=== PATIENT | male | born 1955 | race Caucasian/White ===

== ENCOUNTER → 2018-08-29 | Outpatient (CLI) | payer OTHER ==
[~2018-08-29] MED LIST: GLIP10TA13 PO; LISI5TAB7 PO; PRAV40TA2 PO; SITA1TBM7 PO
== END | disposition home or self-care (01) ==
LOC: CFH 11:39
PROVIDERS: ATTEND Nurse Practitioner Family
DX: K46.9 Unspecified abdominal hernia without obstruction or gangrene (principal)
CPT/HCPCS: 76705

== ENCOUNTER 2018-10-28 13:47 | Emergency (ER) | payer OTHER ==
[~2018-10-28] VITALS: Ht 180.3 cm; Wt 114.4 kg
[2018-10-28 14:59] LABS: BASOPHILS # (AUTO) 0.02 x10^3/uL (0-0.1); BASOPHILS % (AUTO) 0 % (0-1); EOSINOPHILS # (AUTO) 0.07 x10^3/uL (0-0.4); EOSINOPHILS % (AUTO) 1 % (1-7); LYMPHOCYTES # (AUTO) 1.72 x10^3/uL (1-3.4); LYMPHOCYTES % (AUTO) 18 % (22-44); MD NO; MEAN CORPUSCULAR HEMOGLOBIN 29.8 pg (27.5-34.5); MEAN CORPUSCULAR VOLUME 87.6 fL (81-97); MEAN PLATELET VOLUME 8.1 fL (7.4-10.4); MONOCYTES # (AUTO) 0.83 x10^3/uL (0.2-0.8); MONOCYTES % (AUTO) 9 % (2-9); NEUTROPHILS # (AUTO) 6.89 x10^3/uL (1.8-6.8); NEUTROPHILS % (AUTO) 72 % (42-75); PLATELET COUNT 277 x10^3/uL (130-400); RED BLOOD COUNT 5.21 x10^6/uL (4.38-5.82); RED CELL DISTRIBUTION WIDTH 13.6 % (9.4-14.8)
[2018-10-28 15:06] LABS: CULTURE INDICATED? YES; MICROSCOPIC INDICATED
[2018-10-28 15:09] LABS: ANION GAP 5 mmol/L (5-15); CALCIUM 9.4 mg/dL (8.5-10.1); CHLORIDE 101 mmol/L (98-107); CREATININE 1.63 mg/dL (0.7-1.3)
--- NOTE | 2018-10-28 15:09 | NUR ---
Note doug in EDM - 10/28/18 at 1522 by DEMOND PER MD, PT TO RECIEVE NS BOLUS WHILE WAITING FOR LABS FOR HYPERGLYCEMIA. PT AGREES TO POC, UA SENT. LABS PENDING.
--- NOTE | 2018-10-28 15:22 | NUR ---
PER MD, PT TO RECIEVE NS BOLUS WHILE WAITING FOR LABS FOR HYPERGLYCEMIA. PT AGREES TO POC, UA SENT. LABS PENDING
--- NOTE | 2018-10-28 15:22 | NUR ---
Note doug in EDM - 10/28/18 at 1523 by DEMOND PT REPORTS PERSISTENT NAUSEA, AWARE, PT MEDICATED PER EMAR. GIVEN BLANKET WARMER FOR COMFORT, ROSINA AT BEDSIDE. PT AGREES TO POC (ADMIT
[2018-10-28] MEDS ORDERED: CEFTRIAXONE PMX 1GM/50ML 50 ML IV ONE (15:30)
[2018-10-28] MEDS ORDERED: SODIUM CHLORIDE 0.9% 1,000ML IVBOLUS ONE (15:30)
[2018-10-28] MEDS ORDERED: CEFTRIAXONE PMX 1GM/50ML 50 ML ONE (15:33)
--- NOTE | 2018-10-28 15:39 | NUR ---
SECOND LITER NS AND ABX INFUSING. PT DENIES ANY NEEDS AT THIS TIME
[2018-10-28 16:01] VITALS: BP 117/68
[2018-10-28 16:06] LABS: HEMOGLOBIN A1C 9.7 % (4.2-6.3)
[2018-10-28 16:15] LABS: ACETONE, SERUM Negative (Negative)
--- NOTE | 2018-10-28 16:29 | NUR ---
SECOND LITER HALF DONE, PT REQ RESTROOM, PT AMBULATED WITHOUT ASSISTANCE, WILL RECHECK FSBS AFTER SECOND LITER COMPLETE
--- NOTE | 2018-10-28 16:58 | NUR ---
FSBS RECHECK PRIOR TO DC, FLUIDS AND ABX COMPLETE. PT AMBUALTED TO DC DESK WITHOUT ASSISTANCE, DENIES ANY FURTHER NEEDS/CONCERNS.
== END 2018-10-28 17:01 | disposition home or self-care (01) ==
LOC: ED 15:00
DX: E11.65 Type 2 diabetes mellitus with hyperglycemia (principal); N39.0 Urinary tract infection, site not specified; I10 Essential (primary) hypertension
CPT/HCPCS: 36415; 80048; 81001; 82010; 82040; 82800; 82962; 83036; 85025; 87086; 96365; 99283; J0696; J7030

== ENCOUNTER → 2019-11-10 | Outpatient (CLI) | payer OTHER | END | disposition home or self-care (01) | LOC: CVU 14:18 | PROVIDERS: ATTEND Internal Medicine Cardiovascular Disease | DX: I34.8 Other nonrheumatic mitral valve disorders (principal); E11.9 Type 2 diabetes mellitus without complications | CPT/HCPCS: 93306 ==

== ENCOUNTER 2020-05-28 16:54 | Inpatient (IN) | payer OTHER ==
[~2020-05-28] VITALS: Ht 182.9 cm; Wt 101.6 kg
[~2020-05-28 16:54] MED LIST changes: -[UNRECOGNIZED DRUG - REMARK] SQ
--- NOTE | 2020-05-28 17:36 | NUR ---
PT FROM LOBBY TO ROOM. NADN, AMBULATES WITH A STEADY GAIT
[2020-05-28] MEDS ORDERED: ONDANSETRON 2MG/ML, 2ML IVPush ONE (18:00)
[2020-05-28] MEDS ORDERED: SODIUM CHLORIDE 0.9% 1,000ML IVBOLUS ONE (18:00)
[2020-05-28] MEDS ORDERED: CEFTRIAXONE PMX 1GM/50ML 50 ML IVPB ONE (18:00)
[2020-05-28 18:22] LABS: MEAN CORPUSCULAR HEMOGLOBIN 28.2 pg (27.5-34.5); MEAN CORPUSCULAR HGB CONC 33.1 g/dL (33.2-36.2); MEAN CORPUSCULAR VOLUME 85.2 fL (81-97); MEAN PLATELET VOLUME 7.8 fL (7.4-10.4); PLATELET COUNT 440 x10^3/uL (130-400); RED BLOOD COUNT 4.05 x10^6/uL (4.38-5.82); RED CELL DISTRIBUTION WIDTH 13.9 % (9.4-14.8)
[2020-05-28 18:29] LABS: ALBUMIN 2.5 g/dL (3.4-5.0); ANION GAP 5 mmol/L (5-15); CALCIUM 8.8 mg/dL (8.5-10.1); CHLORIDE 99 mmol/L (98-107); CREATININE 1.49 mg/dL (0.7-1.3)
[2020-05-28] MEDS ORDERED: CEFTRIAXONE PMX 1GM/50ML 50 ML ONE (18:40)
[2020-05-28] MEDS ORDERED: ONDANSETRON 2MG/ML, 2ML ONE (18:41)
[2020-05-28] MEDS ORDERED: MORPHINE SULFATE 4 MG/ML, 1ML ONE ×2 (18:41→20:03)
[2020-05-28] MEDS: MORPHINE SULFATE 4 MG/ML, 1ML IVPush PRN ×2 (18:42→20:06)
[2020-05-28 18:51] LABS: BASOPHILS # (AUTO) 0.04 x10^3/uL (0-0.1); BASOPHILS % (AUTO) 0 % (0-1); EOSINOPHILS # (AUTO) 0.15 x10^3/uL (0-0.4); EOSINOPHILS % (AUTO) 1 % (1-7); LYMPHOCYTES # (AUTO) 1.13 x10^3/uL (1-3.4); LYMPHOCYTES % (AUTO) 8 % (22-44); MD SCAN; MONOCYTES # (AUTO) 1.06 x10^3/uL (0.2-0.8); MONOCYTES % (AUTO) 8 % (2-9); NEUTROPHILS # (AUTO) 11.23 x10^3/uL (1.8-6.8); NEUTROPHILS % (AUTO) 83 % (42-75)
--- NOTE | 2020-05-28 18:56 | NUR ---
PT MEDICATED ORDERED. PT C/O RIGHT FLANK PAIN AND ABDOMINAL PAIN AND WAS SENT HERRE FROM URGENT CARE TO BE WROKED UP FOR ABSCESS TO KIDNEYS. PT REPORTS FEVERS OVER THE LAST FEW DAYS AND LAST TOOK TYLENOL YESTERDAY.
--- NOTE | 2020-05-28 19:01 | NUR ---
PT AWARE OF NEED FOR URINE SAMPLE BUT WENT ONCE ALREADY AND FORGOT TO VOID IN THE CUP.
[2020-05-28] MEDS ORDERED: D5%-0.45% NACL 1,000 ML IV ONE (19:43)
[2020-05-28 19:48] LABS: MICROSCOPIC INDICATED
--- NOTE | 2020-05-28 20:15 | NUR ---
PT REMEDICATED FOR PAIN. PT TO BE ADMITTED AND IS NPO AFTER MIDNIGHT. PT GIVEN MEAL TRAY.
[2020-05-28] MEDS ORDERED: [UNRECOGNIZED DRUG - REMARK] SQ (20:38)
[2020-05-28 21:07] VITALS: BP 116/70
[2020-05-28] MEDS ORDERED: PHARMACY MAY ADJ FOR RENAL FX MC PRN (21:30)
[2020-05-28] MEDS ORDERED: VANCOMYCIN PER PHARMACY MC PRN (21:30)
[2020-05-28] MEDS ORDERED: PHARMACOKINETIC MONITORING MC PRN (22:00)
[2020-05-28] MEDS ORDERED: PHARMACOKINETIC CONSULTATION MC ONE (22:00)
[2020-05-28 22:09] LABS: ALANINE AMINOTRANSFERASE 15 U/L (12-78); ALBUMIN 2.1 g/dL (3.4-5.0)
[2020-05-28 22:11] LABS: ALKALINE PHOSPHATASE 101 U/L (45-117); BILIRUBIN,TOTAL 0.2 mg/dL (0.2-1.0); TOTAL PROTEIN 6.4 g/dL (6.4-8.2)
[2020-05-28 22:15] LABS: BILIRUBIN, DIRECT < 0.1 mg/dL (0.1-0.2)
[2020-05-28] MEDS: SODIUM CHLORIDE 0.9% 1,000 ML IV SCH (22:59)
[2020-05-28] MEDS ORDERED: ONDANSETRON 2MG/ML, 2ML IVPush PRN (23:00)
[2020-05-28] MEDS ORDERED: ACETAMINOPHEN 325 MG TABLET PO PRN (23:00)
[2020-05-28] MEDS ORDERED: TRAZODONE 50MG TABLET PO PRN (23:00)
[2020-05-28] MEDS: VANCOMYCIN 1,900 MG in SODIUM CHLORIDE 0.9% 250 ML IV SCH (23:00)
[2020-05-28] MEDS: INSULIN LISPRO 100 UNITS/ML, PEN SQ-INSULIN SCH (23:36)
[2020-05-28] MEDS: INSULIN GLARGINE 100 UNITS/ML, PEN SQ-INSULIN SCH (23:36)
[2020-05-29] MEDS: PIPERACILLIN/TAZO/PMX 3.375GM 50 ML IV SCH ×4 (01:35→19:59)
[2020-05-29 01:53] VITALS: BP 101/60
[2020-05-29 06:00] LABS: BASOPHILS # (AUTO) 0.03 x10^3/uL (0-0.1); BASOPHILS % (AUTO) 0 % (0-1); EOSINOPHILS # (AUTO) 0.15 x10^3/uL (0-0.4); EOSINOPHILS % (AUTO) 1 % (1-7); LYMPHOCYTES # (AUTO) 0.73 x10^3/uL (1-3.4); LYMPHOCYTES % (AUTO) 6 % (22-44); MD NO; MEAN CORPUSCULAR HEMOGLOBIN 27.6 pg (27.5-34.5); MEAN CORPUSCULAR HGB CONC 32.5 g/dL (33.2-36.2); MEAN CORPUSCULAR VOLUME 85.1 fL (81-97); MONOCYTES # (AUTO) 1.18 x10^3/uL (0.2-0.8); MONOCYTES % (AUTO) 9 % (2-9); NEUTROPHILS # (AUTO) 10.72 x10^3/uL (1.8-6.8); NEUTROPHILS % (AUTO) 84 % (42-75); PLATELET COUNT 358 x10^3/uL (130-400); RED BLOOD COUNT 3.71 x10^6/uL (4.38-5.82); RED CELL DISTRIBUTION WIDTH 14.1 % (9.4-14.8)
[2020-05-29 06:04] LABS: ANION GAP 7 mmol/L (5-15); CALCIUM 8.4 mg/dL (8.5-10.1); CHLORIDE 101 mmol/L (98-107); CREATININE 1.49 mg/dL (0.7-1.3)
[2020-05-29 08:02] VITALS: BP 100/74
[2020-05-29] MEDS: SENNA/DOCUSATE TABLET PO SCH (09:00)
[2020-05-29] MEDS: morphine SULFATE 10 MG/ML, 1ML IVPush PRN ×4 (09:13→23:13)
[2020-05-29] MEDS: INSULIN LISPRO 100 UNITS/ML, PEN SQ-INSULIN SCH ×4 (09:14→21:00)
[2020-05-29] MEDS ORDERED: LIDOCAINE 1%, 20ML ONE (10:27)
[2020-05-29] MEDS ORDERED: MIDAZOLAM 1 MG/ML, 5ML ONE (10:29)
[2020-05-29] MEDS ORDERED: NALOXONE 1 MG/ML, 2ML ONE (10:29)
[2020-05-29] MEDS ORDERED: FENTANYL PF 100 MCG/2ML ONE (10:29)
[2020-05-29] MEDS ORDERED: FLUMAZENIL 0.1 MG/1 ML, 5ML ONE (10:29)
[2020-05-29 13:57] VITALS: BP 118/57
[2020-05-29] MEDS: SODIUM CHLORIDE 0.9% 1,000 ML IV SCH (14:17)
[2020-05-29 19:35] VITALS: BP 131/74
[2020-05-29] MEDS: PRAVASTATIN 40 MG TABLET PO SCH (21:16)
[2020-05-29] MEDS: INSULIN GLARGINE 100 UNITS/ML, PEN SQ-INSULIN SCH (22:05)
[2020-05-29] MEDS: VANCOMYCIN 1,900 MG in SODIUM CHLORIDE 0.9% 250 ML IV SCH (23:12)
[2020-05-30 00:47] VITALS: BP 104/61
[2020-05-30] MEDS: PIPERACILLIN/TAZO/PMX 3.375GM 50 ML IV SCH ×2 (02:06→07:57)
[2020-05-30] MEDS: morphine SULFATE 10 MG/ML, 1ML IVPush PRN ×5 (04:09→22:02)
[2020-05-30 04:51] LABS: BASOPHILS # (AUTO) 0.04 x10^3/uL (0-0.1); BASOPHILS % (AUTO) 0 % (0-1); EOSINOPHILS # (AUTO) 0.05 x10^3/uL (0-0.4); EOSINOPHILS % (AUTO) 0 % (1-7); LYMPHOCYTES # (AUTO) 1.48 x10^3/uL (1-3.4); LYMPHOCYTES % (AUTO) 10 % (22-44); MD NO; MEAN CORPUSCULAR HEMOGLOBIN 27.8 pg (27.5-34.5); MEAN CORPUSCULAR HGB CONC 32.6 g/dL (33.2-36.2); MEAN CORPUSCULAR VOLUME 85.3 fL (81-97); MEAN PLATELET VOLUME 7.7 fL (7.4-10.4); MONOCYTES # (AUTO) 1.41 x10^3/uL (0.2-0.8); MONOCYTES % (AUTO) 9 % (2-9); NEUTROPHILS # (AUTO) 12.32 x10^3/uL (1.8-6.8); NEUTROPHILS % (AUTO) 81 % (42-75); PLATELET COUNT 349 x10^3/uL (130-400); RED BLOOD COUNT 3.74 x10^6/uL (4.38-5.82); RED CELL DISTRIBUTION WIDTH 14.4 % (9.4-14.8)
[2020-05-30] MEDS: SODIUM CHLORIDE 0.9% 1,000 ML IV SCH (04:59)
[2020-05-30 05:01] LABS: CHLORIDE 103 mmol/L (98-107)
[2020-05-30 05:08] LABS: ALANINE AMINOTRANSFERASE 15 U/L (12-78); ALKALINE PHOSPHATASE 88 U/L (45-117); ANION GAP 7 mmol/L (5-15); BILIRUBIN,TOTAL 0.4 mg/dL (0.2-1.0); CALCIUM 8.3 mg/dL (8.5-10.1); CREATININE 1.56 mg/dL (0.7-1.3); TOTAL PROTEIN 6.6 g/dL (6.4-8.2)
[2020-05-30] MEDS: SENNA/DOCUSATE TABLET PO SCH (07:57)
[2020-05-30] MEDS: INSULIN LISPRO 100 UNITS/ML, PEN SQ-INSULIN SCH ×4 (07:58→20:34)
[2020-05-30] MEDS: CEFTRIAXONE PMX 2GM/50ML 50 ML IV SCH ×2 (08:51→20:19)
[2020-05-30 09:00] VITALS: BP 110/67
[2020-05-30] MEDS: ACETAMINOPHEN 325 MG TABLET PO PRN (14:21)
[2020-05-30 14:23] VITALS: BP 142/73
[2020-05-30 19:15] VITALS: BP 121/67
[2020-05-30] MEDS: PRAVASTATIN 40 MG TABLET PO SCH (20:28)
[2020-05-30] MEDS: INSULIN GLARGINE 100 UNITS/ML, PEN SQ-INSULIN SCH (20:36)
[2020-05-30] MEDS ORDERED: SODIUM CHLORIDE 0.9% 1,000 ML IV SCH (22:00)
[2020-05-31 00:52] VITALS: BP 144/77
[2020-05-31] MEDS: morphine SULFATE 10 MG/ML, 1ML IVPush PRN ×6 (01:09→20:54)
[2020-05-31 05:16] LABS: MEAN CORPUSCULAR HEMOGLOBIN 27.6 pg (27.5-34.5); MEAN CORPUSCULAR HGB CONC 32.3 g/dL (33.2-36.2); MEAN CORPUSCULAR VOLUME 85.6 fL (81-97); MEAN PLATELET VOLUME 7.5 fL (7.4-10.4); PLATELET COUNT 319 x10^3/uL (130-400); RED BLOOD COUNT 3.57 x10^6/uL (4.38-5.82); RED CELL DISTRIBUTION WIDTH 14.6 % (9.4-14.8)
[2020-05-31 05:27] LABS: CALCIUM 8.3 mg/dL (8.5-10.1); CHLORIDE 105 mmol/L (98-107)
[2020-05-31 05:30] LABS: ANION GAP 6 mmol/L (5-15); CREATININE 1.31 mg/dL (0.7-1.3)
[2020-05-31 05:55] LABS: BASOPHILS # (AUTO) 0.03 x10^3/uL (0-0.1); BASOPHILS % (AUTO) 0 % (0-1); EOSINOPHILS # (AUTO) 0.14 x10^3/uL (0-0.4); EOSINOPHILS % (AUTO) 1 % (1-7); LYMPHOCYTES # (AUTO) 1.11 x10^3/uL (1-3.4); LYMPHOCYTES % (AUTO) 8 % (22-44); MD SCAN; MONOCYTES # (AUTO) 1.35 x10^3/uL (0.2-0.8); MONOCYTES % (AUTO) 10 % (2-9); NEUTROPHILS % (AUTO) 81 % (42-75)
[2020-05-31 07:49] VITALS: BP 144/79
[2020-05-31] MEDS: SENNA/DOCUSATE TABLET PO SCH (08:04)
[2020-05-31] MEDS: CARVEDILOL 3.125 MG TABLET PO SCH ×2 (08:04→17:03)
[2020-05-31] MEDS: HEPARIN 5,000 UNITS/ML, 1ML SQ SCH ×2 (08:06→16:10)
[2020-05-31] MEDS: INSULIN LISPRO 100 UNITS/ML, PEN SQ-INSULIN SCH ×4 (08:07→20:44)
[2020-05-31] MEDS: CEFTRIAXONE PMX 2GM/50ML 50 ML IV SCH (08:10)
[2020-05-31 12:26] VITALS: BP 127/67
[2020-05-31] MEDS ORDERED: MAGNESIUM CITRATE 300ML ORAL SOL PO ONE (14:30)
[2020-05-31 18:42] VITALS: BP 129/66
[2020-05-31] MEDS: PRAVASTATIN 40 MG TABLET PO SCH (20:46)
[2020-05-31] MEDS: INSULIN GLARGINE 100 UNITS/ML, PEN SQ-INSULIN SCH (20:47)
[2020-05-31] MEDS ORDERED: SODIUM CHLORIDE 0.9% 1,000 ML IV SCH (22:00)
[2020-06-01] MEDS: HEPARIN 5,000 UNITS/ML, 1ML SQ SCH ×3 (00:20→16:32)
[2020-06-01 00:39] VITALS: BP 138/86
[2020-06-01] MEDS: morphine SULFATE 10 MG/ML, 1ML IVPush PRN ×5 (00:55→22:18)
[2020-06-01 04:40] LABS: BASOPHILS # (AUTO) 0.03 x10^3/uL (0-0.1); BASOPHILS % (AUTO) 0 % (0-1); EOSINOPHILS # (AUTO) 0.23 x10^3/uL (0-0.4); EOSINOPHILS % (AUTO) 2 % (1-7); LYMPHOCYTES # (AUTO) 1.23 x10^3/uL (1-3.4); LYMPHOCYTES % (AUTO) 10 % (22-44); MD NO; MEAN CORPUSCULAR HEMOGLOBIN 28.1 pg (27.5-34.5); MEAN CORPUSCULAR HGB CONC 32.7 g/dL (33.2-36.2); MEAN CORPUSCULAR VOLUME 85.7 fL (81-97); MEAN PLATELET VOLUME 7.6 fL (7.4-10.4); MONOCYTES # (AUTO) 1.24 x10^3/uL (0.2-0.8); MONOCYTES % (AUTO) 10 % (2-9); NEUTROPHILS # (AUTO) 9.32 x10^3/uL (1.8-6.8); NEUTROPHILS % (AUTO) 77 % (42-75); PLATELET COUNT 327 x10^3/uL (130-400); RED BLOOD COUNT 3.46 x10^6/uL (4.38-5.82); RED CELL DISTRIBUTION WIDTH 14.2 % (9.4-14.8)
[2020-06-01 04:44] LABS: HCT (SEDRATE) 29.7 % (39.2-51.8)
[2020-06-01 05:02] LABS: CHLORIDE 104 mmol/L (98-107)
[2020-06-01 05:15] LABS: % IRON SATURATION 12 % (20-55); ANION GAP 6 mmol/L (5-15); CREATININE 1.17 mg/dL (0.7-1.3); IRON LEVEL 21 mcg/dL (65-175); TOTAL IRON BINDING CAPACITY 172 mcg/dL (250-450)
[2020-06-01] MEDS ORDERED: MORPHINE SULFATE 4 MG/ML, 1ML ONE (05:34)
[2020-06-01] MEDS: CARVEDILOL 3.125 MG TABLET PO SCH ×2 (05:39→17:03)
[2020-06-01 07:24] VITALS: BP 108/67
[2020-06-01] MEDS: SENNA/DOCUSATE TABLET PO SCH (07:50)
[2020-06-01] MEDS: INSULIN LISPRO 100 UNITS/ML, PEN SQ-INSULIN SCH ×4 (07:51→20:07)
[2020-06-01] MEDS: BISACODYL 10 MG SUPP PR SCH (07:55)
[2020-06-01] MEDS: CEFTRIAXONE PMX 2GM/50ML 50 ML IV SCH (10:03)
[2020-06-01] MEDS: ACETAMINOPHEN 325 MG TABLET PO PRN ×2 (10:28→20:39)
[2020-06-01] MEDS ORDERED: INSU100I11 SQ-INSULIN (13:40)
[2020-06-01] MEDS ORDERED: INSU100I13 SQ-INSULIN (13:40)
[2020-06-01] MEDS ORDERED: ACET325T26 PO (13:40)
[2020-06-01] MEDS ORDERED: OXYC5TAB2 PO (13:40)
[2020-06-01] MEDS ORDERED: SENN-193 PO (13:40)
[2020-06-01] MEDS ORDERED: CARV3.1212 PO (13:40)
[2020-06-01 13:44] VITALS: BP 143/80
[2020-06-01] MEDS: PRAVASTATIN 40 MG TABLET PO SCH (20:06)
[2020-06-01] MEDS: INSULIN GLARGINE 100 UNITS/ML, PEN SQ-INSULIN SCH (20:07)
[2020-06-01 20:32] VITALS: BP 134/66
[2020-06-02] MEDS: SODIUM CHLORIDE 0.9% 1,000 ML IV SCH ×2 (00:08→17:34)
[2020-06-02] MEDS: HEPARIN 5,000 UNITS/ML, 1ML SQ SCH ×3 (00:08→16:48)
[2020-06-02 01:26] VITALS: BP 129/71
[2020-06-02] MEDS: morphine SULFATE 10 MG/ML, 1ML IVPush PRN (04:41)
[2020-06-02] MEDS: CARVEDILOL 3.125 MG TABLET PO SCH ×2 (06:09→16:48)
[2020-06-02] MEDS: INSULIN LISPRO 100 UNITS/ML, PEN SQ-INSULIN SCH ×4 (07:00→21:02)
[2020-06-02] MEDS ORDERED: METHYLNALTREXONE 12 MG/0.6 ML SYR SQ ONE (08:00)
[2020-06-02] MEDS: BISACODYL 10 MG SUPP PR SCH (09:00)
[2020-06-02 09:04] VITALS: BP 131/74
[2020-06-02] MEDS ORDERED: NALOXONE 1 MG/ML, 2ML ONE (11:31)
[2020-06-02] MEDS ORDERED: MIDAZOLAM 1 MG/ML, 5ML ONE ×2 (11:31)
[2020-06-02] MEDS ORDERED: FLUMAZENIL 0.1 MG/1 ML, 5ML ONE (11:31)
[2020-06-02] MEDS ORDERED: FENTANYL PF 100 MCG/2ML ONE (11:31)
[2020-06-02] MEDS: CEFTRIAXONE PMX 2GM/50ML 50 ML IV SCH (13:12)
[2020-06-02] MEDS: SENNA/DOCUSATE TABLET PO SCH (13:18)
[2020-06-02 13:37] VITALS: BP 119/61
[2020-06-02 16:46] VITALS: BP 138/67
[2020-06-02] MEDS: OXYcodone IR 5MG TABLET PO PRN (17:33)
[2020-06-02 18:46] VITALS: BP 130/69
[2020-06-02] MEDS: PRAVASTATIN 40 MG TABLET PO SCH (21:01)
[2020-06-02] MEDS: INSULIN GLARGINE 100 UNITS/ML, PEN SQ-INSULIN SCH (21:02)
[2020-06-03] MEDS: HEPARIN 5,000 UNITS/ML, 1ML SQ SCH ×3 (00:03→17:01)
[2020-06-03] MEDS: OXYcodone IR 5MG TABLET PO PRN ×4 (00:04→17:01)
[2020-06-03 01:09] VITALS: BP 130/77
[2020-06-03] MEDS: CARVEDILOL 3.125 MG TABLET PO SCH ×2 (06:06→17:01)
[2020-06-03 06:44] VITALS: BP 127/77
[2020-06-03] MEDS: SENNA/DOCUSATE TABLET PO SCH (07:17)
[2020-06-03] MEDS: INSULIN LISPRO 100 UNITS/ML, PEN SQ-INSULIN SCH ×4 (07:18→20:16)
[2020-06-03] MEDS: BISACODYL 10 MG SUPP PR SCH (09:00)
[2020-06-03] MEDS: SODIUM CHLORIDE 0.9% 1,000 ML IV SCH (09:54)
[2020-06-03 13:06] VITALS: BP 122/71
[2020-06-03] MEDS: CEFTRIAXONE PMX 2GM/50ML 50 ML IV SCH (13:33)
[2020-06-03 16:59] VITALS: BP 135/74
[2020-06-03 18:50] VITALS: BP 138/78
[2020-06-03] MEDS: ACETAMINOPHEN 325 MG TABLET PO PRN (20:15)
[2020-06-03] MEDS: PRAVASTATIN 40 MG TABLET PO SCH (20:15)
[2020-06-03] MEDS: INSULIN GLARGINE 100 UNITS/ML, PEN SQ-INSULIN SCH (20:16)
[2020-06-03] MEDS ORDERED: OMNIPAQUE 350 MG/ML, 75ML BOTTLE ONE (21:49)
[2020-06-03] MEDS ORDERED: DIPHENHYDRAMINE 50 MG CAPSULE PO PRN (22:30)
[2020-06-04] MEDS: HEPARIN 5,000 UNITS/ML, 1ML SQ SCH ×3 (00:11→16:14)
[2020-06-04 00:38] VITALS: BP 96/62
[2020-06-04] MEDS: CARVEDILOL 3.125 MG TABLET PO SCH ×2 (05:50→18:01)
[2020-06-04 06:59] VITALS: BP 116/57
[2020-06-04] MEDS: INSULIN LISPRO 100 UNITS/ML, PEN SQ-INSULIN SCH ×4 (07:20→20:22)
[2020-06-04] MEDS: SENNA/DOCUSATE TABLET PO SCH (07:20)
[2020-06-04] MEDS: SODIUM CHLORIDE 0.9% 1,000 ML IV SCH (08:27)
[2020-06-04] MEDS: BISACODYL 10 MG SUPP PR SCH (09:00)
[2020-06-04 13:18] VITALS: BP 119/61
[2020-06-04] MEDS: CEFTRIAXONE PMX 2GM/50ML 50 ML IV SCH (13:47)
[2020-06-04] MEDS: OXYcodone IR 5MG TABLET PO PRN ×2 (16:14→22:35)
[2020-06-04 18:03] VITALS: BP 124/62
[2020-06-04] MEDS: PRAVASTATIN 40 MG TABLET PO SCH (20:21)
[2020-06-04] MEDS: INSULIN GLARGINE 100 UNITS/ML, PEN SQ-INSULIN SCH (20:22)
[2020-06-05] MEDS: HEPARIN 5,000 UNITS/ML, 1ML SQ SCH ×3 (00:16→18:08)
[2020-06-05 00:20] VITALS: BP 103/63
[2020-06-05] MEDS: SODIUM CHLORIDE 0.9% 1,000 ML IV SCH ×2 (00:40→20:00)
[2020-06-05] MEDS: CARVEDILOL 3.125 MG TABLET PO SCH ×2 (06:21→18:08)
[2020-06-05] MEDS: INSULIN LISPRO 100 UNITS/ML, PEN SQ-INSULIN SCH ×4 (07:00→20:48)
[2020-06-05 07:41] VITALS: BP 117/73
[2020-06-05 08:55] LABS: INTERNATIONAL NORMALIZED RATIO 1.11 (0.93-1.1); PROTHROMBIN TIME 11.4 Seconds (9.6-11.5)
[2020-06-05] MEDS: BISACODYL 10 MG SUPP PR SCH (09:00)
[2020-06-05] MEDS: SENNA/DOCUSATE TABLET PO SCH (09:00)
[2020-06-05 12:35] VITALS: BP 120/70
[2020-06-05] MEDS: CEFTRIAXONE PMX 2GM/50ML 50 ML IV SCH (13:18)
[2020-06-05] MEDS: OXYcodone IR 5MG TABLET PO PRN (18:08)
[2020-06-05] MEDS: PRAVASTATIN 40 MG TABLET PO SCH (20:49)
[2020-06-05] MEDS: INSULIN GLARGINE 100 UNITS/ML, PEN SQ-INSULIN SCH (20:57)
[2020-06-05 21:09] VITALS: BP 134/74
[2020-06-06 01:06] VITALS: BP 109/70
[2020-06-06] MEDS: HEPARIN 5,000 UNITS/ML, 1ML SQ SCH ×4 (02:40→22:12)
[2020-06-06] MEDS: OXYcodone IR 5MG TABLET PO PRN ×2 (02:46→23:43)
[2020-06-06 04:53] LABS: BASOPHILS # (AUTO) 0.04 x10^3/uL (0-0.1); BASOPHILS % (AUTO) 1 % (0-1); EOSINOPHILS # (AUTO) 0.19 x10^3/uL (0-0.4); EOSINOPHILS % (AUTO) 2 % (1-7); LYMPHOCYTES # (AUTO) 1.27 x10^3/uL (1-3.4); LYMPHOCYTES % (AUTO) 13 % (22-44); MD NO; MEAN CORPUSCULAR HEMOGLOBIN 27.4 pg (27.5-34.5); MEAN CORPUSCULAR HGB CONC 31.7 g/dL (33.2-36.2); MEAN CORPUSCULAR VOLUME 86.3 fL (81-97); MEAN PLATELET VOLUME 6.9 fL (7.4-10.4); MONOCYTES # (AUTO) 0.81 x10^3/uL (0.2-0.8); MONOCYTES % (AUTO) 8 % (2-9); NEUTROPHILS # (AUTO) 7.29 x10^3/uL (1.8-6.8); NEUTROPHILS % (AUTO) 76 % (42-75); PLATELET COUNT 352 x10^3/uL (130-400); RED BLOOD COUNT 3.16 x10^6/uL (4.38-5.82)
[2020-06-06 05:00] LABS: ANION GAP 3 mmol/L (5-15); CALCIUM 8.2 mg/dL (8.5-10.1); CHLORIDE 106 mmol/L (98-107)
[2020-06-06 05:01] LABS: CREATININE 1.09 mg/dL (0.7-1.3)
[2020-06-06] MEDS: INSULIN LISPRO 100 UNITS/ML, PEN SQ-INSULIN SCH ×4 (06:07→20:21)
[2020-06-06] MEDS: CARVEDILOL 3.125 MG TABLET PO SCH ×2 (06:07→16:55)
[2020-06-06 06:09] VITALS: BP 113/68
[2020-06-06] MEDS: BISACODYL 10 MG SUPP PR SCH (07:17)
[2020-06-06] MEDS: SENNA/DOCUSATE TABLET PO SCH ×2 (07:18→08:59)
[2020-06-06] MEDS: FERROUS SULFATE 325 MG TABLET PO SCH (08:55)
[2020-06-06] MEDS: SODIUM CHLORIDE 0.9% 1,000 ML IV SCH (11:22)
[2020-06-06] MEDS: CEFTRIAXONE PMX 2GM/50ML 50 ML IV SCH (13:40)
[2020-06-06] MEDS: ACETAMINOPHEN 325 MG TABLET PO PRN (16:55)
[2020-06-06 16:56] VITALS: BP 122/78
[2020-06-06 19:51] VITALS: BP 124/72
[2020-06-06] MEDS: PRAVASTATIN 40 MG TABLET PO SCH (20:08)
[2020-06-06] MEDS: INSULIN GLARGINE 100 UNITS/ML, PEN SQ-INSULIN SCH (20:20)
[2020-06-07 01:07] VITALS: BP 114/72
[2020-06-07 04:35] LABS: HCT (SEDRATE) 26.8 % (39.2-51.8)
[2020-06-07 04:36] LABS: BASOPHILS # (AUTO) 0.06 x10^3/uL (0-0.1); BASOPHILS % (AUTO) 1 % (0-1); EOSINOPHILS # (AUTO) 0.25 x10^3/uL (0-0.4); EOSINOPHILS % (AUTO) 3 % (1-7); LYMPHOCYTES # (AUTO) 1.17 x10^3/uL (1-3.4); LYMPHOCYTES % (AUTO) 13 % (22-44); MD NO; MEAN CORPUSCULAR HEMOGLOBIN 27.6 pg (27.5-34.5); MEAN CORPUSCULAR HGB CONC 32.8 g/dL (33.2-36.2); MEAN CORPUSCULAR VOLUME 84.3 fL (81-97); MEAN PLATELET VOLUME 7.4 fL (7.4-10.4); MONOCYTES # (AUTO) 0.78 x10^3/uL (0.2-0.8); MONOCYTES % (AUTO) 9 % (2-9); NEUTROPHILS # (AUTO) 6.86 x10^3/uL (1.8-6.8); NEUTROPHILS % (AUTO) 75 % (42-75); PLATELET COUNT 330 x10^3/uL (130-400); RED CELL DISTRIBUTION WIDTH 13.9 % (9.4-14.8)
[2020-06-07 04:40] LABS: CHLORIDE 106 mmol/L (98-107)
[2020-06-07 04:58] LABS: ALANINE AMINOTRANSFERASE 30 U/L (12-78); ALBUMIN 1.7 g/dL (3.4-5.0); ALKALINE PHOSPHATASE 79 U/L (45-117); ANION GAP 4 mmol/L (5-15); BILIRUBIN,TOTAL 0.2 mg/dL (0.2-1.0); CALCIUM 8.1 mg/dL (8.5-10.1); CREATININE 1.05 mg/dL (0.7-1.3)
[2020-06-07] MEDS: SODIUM CHLORIDE 0.9% 1,000 ML IV SCH (05:35)
[2020-06-07] MEDS: CARVEDILOL 3.125 MG TABLET PO SCH ×2 (05:35→18:31)
[2020-06-07 07:08] VITALS: BP 124/73
[2020-06-07] MEDS: INSULIN LISPRO 100 UNITS/ML, PEN SQ-INSULIN SCH ×4 (07:44→19:58)
[2020-06-07 08:15] LABS: OCCULT BLOOD NEGATIVE (NEGATIVE)
[2020-06-07] MEDS: SENNA/DOCUSATE TABLET PO SCH (08:42)
[2020-06-07] MEDS: BISACODYL 10 MG SUPP PR SCH (08:43)
[2020-06-07] MEDS ORDERED: MIDAZOLAM 1 MG/ML, 2ML ONE (09:51)
[2020-06-07] MEDS ORDERED: FENTANYL PF 250 MCG/5ML ONE (09:52)
[2020-06-07] MEDS ORDERED: BUPIVACAINE/PF-EPI 0.5% 1:200K ONE (09:54)
[2020-06-07] MEDS: HEPARIN 5,000 UNITS/ML, 1ML SQ SCH (10:08)
[2020-06-07] MEDS ORDERED: LACTATED RINGERS 1,000 ML IV SCH (10:23)
[2020-06-07] MEDS ORDERED: CHLORHEXIDINE 15 ML UDC ONE (10:33)
[2020-06-07] MEDS ORDERED: OXYcodone 5 MG/5 ML ORAL.SOL UDC PO PRN (11:00)
[2020-06-07] MEDS ORDERED: ACETAMINOPHEN 325 MG TABLET PO PRN (11:00)
[2020-06-07] MEDS ORDERED: morphine SULFATE 10 MG/ML, 1ML IVPush PRN (11:00)
[2020-06-07] MEDS ORDERED: ONDANSETRON 2MG/ML, 2ML IVPush PRN (11:00)
[2020-06-07] MEDS ORDERED: CHLORHEXIDINE 15 ML UDC MM ONE (11:00)
[2020-06-07] MEDS ORDERED: hydrALAzine 20 MG/ML, 1ML IV PRN (11:00)
[2020-06-07] MEDS ORDERED: LABETALOL 5MG/ML, 20ML IV PRN (11:00)
[2020-06-07] MEDS ORDERED: MEPERIDINE/PF 25MG/0.5ML IVPush PRN (11:00)
[2020-06-07] MEDS ORDERED: PROPOFOL 10 MG/ML, 20ML ONE (12:22)
[2020-06-07] MEDS ORDERED: ONDANSETRON 2MG/ML, 2ML ONE (12:22)
[2020-06-07] MEDS ORDERED: GLYCOPYRROLATE 0.2MG/1ML, 5ML ONE (12:22)
[2020-06-07] MEDS ORDERED: ROCURONIUM 10MG/ML,5ML ONE (12:22)
[2020-06-07] MEDS ORDERED: NEOSTIGMINE 1 MG/ML, 10ML ONE (12:22)
[2020-06-07] MEDS ORDERED: CEFAZOLIN 1,000 MG ONE (12:22)
[2020-06-07] MEDS ORDERED: SUGAMMADEX 200 MG/2 ML IVPush ONE (12:23)
[2020-06-07] MEDS ORDERED: FENTANYL PF 100 MCG/2ML ONE ×2 (13:01→13:36)
[2020-06-07] MEDS ORDERED: OXYcodone 5 MG/5 ML ORAL.SOL UDC ONE (13:01)
[2020-06-07] MEDS: FENTANYL PF 100 MCG/2ML IV PRN ×4 (13:10→13:37)
[2020-06-07] MEDS ORDERED: HYDROmorphone 1 MG/ML, 1ML INJ ONE (16:09)
[2020-06-07] MEDS: HYDROmorphone 1 MG/ML, 1ML INJ IVPush PRN ×3 (16:11→16:47)
[2020-06-07] MEDS ORDERED: HYDROmorphone 1 MG/ML, 1ML INJ IV PRN (18:30)
[2020-06-07] MEDS: OXYcodone IR 5MG TABLET PO PRN (18:32)
[2020-06-07] MEDS: CEFTRIAXONE PMX 2GM/50ML 50 ML IV SCH (18:32)
[2020-06-07] MEDS: POTASSIUM CHLORIDE 20 MEQ in LACTATED RINGERS 1,000 ML IV SCH (19:56)
[2020-06-07 20:01] VITALS: BP 121/68
[2020-06-07] MEDS: INSULIN GLARGINE 100 UNITS/ML, PEN SQ-INSULIN SCH (21:00)
[2020-06-07] MEDS: PRAVASTATIN 40 MG TABLET PO SCH (21:11)
[2020-06-08] MEDS: OXYcodone IR 5MG TABLET PO PRN (00:29)
[2020-06-08 00:50] VITALS: BP 137/74
[2020-06-08] MEDS: morphine SULFATE 10 MG/ML, 1ML IV PRN ×4 (02:27→20:42)
[2020-06-08] MEDS: CARVEDILOL 3.125 MG TABLET PO SCH ×2 (05:08→18:23)
[2020-06-08] MEDS: ENOXAPARIN 40 MG/0.4 ML SQ SCH (05:08)
[2020-06-08] MEDS: POTASSIUM CHLORIDE 20 MEQ in LACTATED RINGERS 1,000 ML IV SCH ×2 (05:08→16:37)
[2020-06-08 05:42] LABS: BASOPHILS # (AUTO) 0.11 x10^3/uL (0-0.1); BASOPHILS % (AUTO) 1 % (0-1); EOSINOPHILS # (AUTO) 0.19 x10^3/uL (0-0.4); EOSINOPHILS % (AUTO) 2 % (1-7); LYMPHOCYTES # (AUTO) 1.42 x10^3/uL (1-3.4); LYMPHOCYTES % (AUTO) 12 % (22-44); MD NO; MEAN CORPUSCULAR HEMOGLOBIN 27.7 pg (27.5-34.5); MEAN CORPUSCULAR VOLUME 84.1 fL (81-97); MEAN PLATELET VOLUME 7.2 fL (7.4-10.4); MONOCYTES # (AUTO) 0.96 x10^3/uL (0.2-0.8); MONOCYTES % (AUTO) 8 % (2-9); NEUTROPHILS # (AUTO) 9.15 x10^3/uL (1.8-6.8); NEUTROPHILS % (AUTO) 77 % (42-75); PLATELET COUNT 416 x10^3/uL (130-400); RED BLOOD COUNT 3.39 x10^6/uL (4.38-5.82); RED CELL DISTRIBUTION WIDTH 14.4 % (9.4-14.8)
[2020-06-08 05:43] LABS: ANION GAP 5 mmol/L (5-15); CALCIUM 7.9 mg/dL (8.5-10.1); CHLORIDE 105 mmol/L (98-107); CREATININE 1.03 mg/dL (0.7-1.3)
[2020-06-08] MEDS: INSULIN LISPRO 100 UNITS/ML, PEN SQ-INSULIN SCH ×4 (07:00→20:41)
[2020-06-08 07:08] VITALS: BP 143/66
[2020-06-08] MEDS: LISINOPRIL 5 MG TABLET PO SCH (09:00)
[2020-06-08] MEDS: BISACODYL 10 MG SUPP PR SCH (09:00)
[2020-06-08] MEDS: SENNA/DOCUSATE TABLET PO SCH (09:20)
[2020-06-08] MEDS: FERROUS SULFATE 325 MG TABLET PO SCH (09:21)
[2020-06-08 12:14] VITALS: BP 126/66
[2020-06-08] MEDS ORDERED: metFORMIN 500 MG TABLET PO SCH (17:00)
[2020-06-08 18:15] VITALS: BP 144/82
[2020-06-08] MEDS: CEFTRIAXONE PMX 2GM/50ML 50 ML IV SCH (18:23)
[2020-06-08] MEDS: PRAVASTATIN 40 MG TABLET PO SCH (20:42)
[2020-06-08] MEDS: INSULIN GLARGINE 100 UNITS/ML, PEN SQ-INSULIN SCH (20:43)
[2020-06-09 02:00] VITALS: BP 129/71
[2020-06-09] MEDS: POTASSIUM CHLORIDE 20 MEQ in LACTATED RINGERS 1,000 ML IV SCH (02:18)
[2020-06-09] MEDS ORDERED: HYDROmorphone 2 MG/ML, 1ML IVPush ONE (05:30)
[2020-06-09] MEDS ORDERED: HYDROmorphone 2 MG/ML, 1ML ONE (05:34)
[2020-06-09] MEDS: ENOXAPARIN 40 MG/0.4 ML SQ SCH (05:51)
[2020-06-09] MEDS: CARVEDILOL 3.125 MG TABLET PO SCH ×2 (05:52→17:56)
[2020-06-09 06:47] LABS: BASOPHILS # (AUTO) 0.03 x10^3/uL (0-0.1); BASOPHILS % (AUTO) 0 % (0-1); EOSINOPHILS # (AUTO) 0.24 x10^3/uL (0-0.4); EOSINOPHILS % (AUTO) 2 % (1-7); LYMPHOCYTES # (AUTO) 1.17 x10^3/uL (1-3.4); LYMPHOCYTES % (AUTO) 11 % (22-44); MD NO; MEAN CORPUSCULAR HEMOGLOBIN 27.2 pg (27.5-34.5); MEAN CORPUSCULAR HGB CONC 32.2 g/dL (33.2-36.2); MEAN CORPUSCULAR VOLUME 84.5 fL (81-97); MEAN PLATELET VOLUME 7.6 fL (7.4-10.4); MONOCYTES # (AUTO) 0.97 x10^3/uL (0.2-0.8); MONOCYTES % (AUTO) 9 % (2-9); NEUTROPHILS % (AUTO) 77 % (42-75); PLATELET COUNT 425 x10^3/uL (130-400); RED BLOOD COUNT 3.49 x10^6/uL (4.38-5.82); RED CELL DISTRIBUTION WIDTH 14.5 % (9.4-14.8)
[2020-06-09 06:57] LABS: ANION GAP 3 mmol/L (5-15); CALCIUM 8.3 mg/dL (8.5-10.1); CHLORIDE 105 mmol/L (98-107); CREATININE 1.02 mg/dL (0.7-1.3)
[2020-06-09] MEDS: INSULIN LISPRO 100 UNITS/ML, PEN SQ-INSULIN SCH ×4 (07:00→20:17)
[2020-06-09] MEDS ORDERED: MORPHINE SULFATE 4 MG/ML, 1ML IV PRN (07:30)
[2020-06-09] MEDS: LINAGLIPTIN 5 MG TAB PO SCH (08:05)
[2020-06-09] MEDS: CALCIUM/VITAMIN D3 250-125 TABLET PO SCH ×2 (08:05→20:35)
[2020-06-09] MEDS: LISINOPRIL 5 MG TABLET PO SCH (08:05)
[2020-06-09] MEDS: SENNA/DOCUSATE TABLET PO SCH (08:06)
[2020-06-09] MEDS: BISACODYL 10 MG SUPP PR SCH (08:06)
[2020-06-09 08:23] VITALS: BP 112/63
[2020-06-09 13:17] VITALS: BP 121/70
[2020-06-09] MEDS: CEFTRIAXONE PMX 2GM/50ML 50 ML IV SCH (17:56)
[2020-06-09 19:10] VITALS: BP 137/76
[2020-06-09] MEDS: INSULIN GLARGINE 100 UNITS/ML, PEN SQ-INSULIN SCH (20:16)
[2020-06-09 20:33] VITALS: BP 119/66
[2020-06-09] MEDS: OXYcodone IR 5MG TABLET PO PRN (20:35)
[2020-06-09] MEDS: PRAVASTATIN 40 MG TABLET PO SCH (20:35)
[2020-06-10 01:50] VITALS: BP 133/72
[2020-06-10] MEDS: OXYcodone IR 5MG TABLET PO PRN (04:35)
[2020-06-10 05:15] VITALS: BP 114/65
[2020-06-10] MEDS: CARVEDILOL 3.125 MG TABLET PO SCH (05:16)
[2020-06-10] MEDS: ENOXAPARIN 40 MG/0.4 ML SQ SCH (05:17)
[2020-06-10 06:15] LABS: BASOPHILS # (AUTO) 0.05 x10^3/uL (0-0.1); BASOPHILS % (AUTO) 1 % (0-1); EOSINOPHILS # (AUTO) 0.23 x10^3/uL (0-0.4); EOSINOPHILS % (AUTO) 2 % (1-7); LYMPHOCYTES # (AUTO) 1.05 x10^3/uL (1-3.4); LYMPHOCYTES % (AUTO) 10 % (22-44); MD NO; MEAN CORPUSCULAR HEMOGLOBIN 27.5 pg (27.5-34.5); MEAN CORPUSCULAR HGB CONC 32.1 g/dL (33.2-36.2); MEAN CORPUSCULAR VOLUME 85.5 fL (81-97); MEAN PLATELET VOLUME 7.3 fL (7.4-10.4); MONOCYTES # (AUTO) 0.79 x10^3/uL (0.2-0.8); MONOCYTES % (AUTO) 8 % (2-9); NEUTROPHILS # (AUTO) 8.01 x10^3/uL (1.8-6.8); NEUTROPHILS % (AUTO) 79 % (42-75); PLATELET COUNT 389 x10^3/uL (130-400); RED BLOOD COUNT 3.46 x10^6/uL (4.38-5.82); RED CELL DISTRIBUTION WIDTH 14.1 % (9.4-14.8)
[2020-06-10 08:04] VITALS: BP 152/72
[2020-06-10 08:07] VITALS: BP 121/68
[2020-06-10] MEDS: INSULIN LISPRO 100 UNITS/ML, PEN SQ-INSULIN SCH ×2 (08:14→12:17)
[2020-06-10] MEDS: BISACODYL 10 MG SUPP PR SCH (08:26)
[2020-06-10] MEDS: LISINOPRIL 5 MG TABLET PO SCH (08:26)
[2020-06-10] MEDS: CALCIUM/VITAMIN D3 250-125 TABLET PO SCH (08:26)
[2020-06-10] MEDS: LINAGLIPTIN 5 MG TAB PO SCH (08:26)
[2020-06-10] MEDS: FERROUS SULFATE 325 MG TABLET PO SCH (08:26)
[2020-06-10] MEDS: SENNA/DOCUSATE TABLET PO SCH (08:26)
[2020-06-10 13:26] VITALS: BP 123/63
[2020-06-10] MEDS: CEFTRIAXONE PMX 2GM/50ML 50 ML IV SCH (14:42)
== END 2020-06-10 16:36 | disposition home or self-care (01) | DRG 853 ==
LOC: ED 17:57 → EDIP 20:01 → 3N 20:53 → 4WST 06-07 18:07
PROVIDERS: ADMIT Family Medicine; ATTEND Internal Medicine
PROC: 02HV33Z Insertion of Infusion Device into Superior Vena Cava, Percutaneous Approach (ICD-10-PCS; 2020-06-02)
PROC: B5181ZA Fluoroscopy of Superior Vena Cava using Low Osmolar Contrast, Guidance (ICD-10-PCS; 2020-06-02)
PROC: 0GB33ZX Excision of Right Adrenal Gland, Percutaneous Approach, Diagnostic (ICD-10-PCS; 2020-06-02)
PROC: 0BNM4ZZ Release Bilateral Lungs, Percutaneous Endoscopic Approach (ICD-10-PCS; principal; 2020-06-07 11:30)
DX: A41.9 Sepsis, unspecified organism (principal); N15.1 Renal and perinephric abscess; E44.0 Moderate protein-calorie malnutrition; E87.1 Hypo-osmolality and hyponatremia; N12 Tubulo-interstitial nephritis, not specified as acute or chronic; B96.20 Unspecified Escherichia coli [E. coli] as the cause of diseases classified elsewhere; D50.9 Iron deficiency anemia, unspecified; E27.8 Other specified disorders of adrenal gland; E11.649 Type 2 diabetes mellitus with hypoglycemia without coma; E66.01 Morbid (severe) obesity due to excess calories; E78.5 Hyperlipidemia, unspecified; E83.51 Hypocalcemia; E86.0 Dehydration; F32.9 Major depressive disorder, single episode, unspecified; F41.9 Anxiety disorder, unspecified; I10 Essential (primary) hypertension; K59.03 Drug induced constipation; R09.02 Hypoxemia; R65.20 Severe sepsis without septic shock; T40.2X5A Adverse effect of other opioids, initial encounter; Z68.30 Body mass index [BMI] 30.0-30.9, adult; Z82.49 Family history of ischemic heart disease and other diseases of the circulatory system; Z87.440 Personal history of urinary (tract) infections; Z87.891 Personal history of nicotine dependence; Z03.818 Encounter for observation for suspected exposure to other biological agents ruled out
CPT/HCPCS: 32555; 36415; 36600; 75989; 84145; 96365; 96375; 96376; 99285; J3490; 36573; 49180; 49405; 71045; 71260; 74150; 77012; 80048; 80053; 80076; 81001; 82040; 82272; 82330; 82803; 82947; 82962; 83036; 83540; 83550; 83605; 85025; 85610; 85651; 86140; 87040; 87070; 87075; 87077; 87086; 87176; 87186; 87205; 87635; 88305; 93005; 99156; 99157; C1729; G0378; J0690; J0696; J1170; J1644; J1650; J2250; J2405; J2543; J2704; J2710; J3010; J3370; J3480; Q9967; C1751; C1769; J1815; J2270; J2310; J7030; J7050; J7120

== ENCOUNTER → 2020-05-28 | Outpatient (CLI) | payer OTHER ==
[~2020-05-28] MED LIST changes: +[UNRECOGNIZED DRUG - REMARK] SQ
== END | disposition home or self-care (01) ==
LOC: RAD 13:59
PROVIDERS: ATTEND Family Medicine
DX: K80.20 Calculus of gallbladder without cholecystitis without obstruction (principal); K85.90 Acute pancreatitis without necrosis or infection, unspecified; R30.0 Dysuria; R31.9 Hematuria, unspecified; R05 Cough
CPT/HCPCS: 74176

== ENCOUNTER → 2020-06-21 | Outpatient (CLI) | payer OTHER ==
[~2020-06-21] MED LIST changes: +ACET325T26 PO; +CARV3.1212 PO; +INSU100I11 SQ-INSULIN; +INSU100I13 SQ-INSULIN; +OXYC5TAB2 PO; +SENN-193 PO; +[UNRECOGNIZED DRUG - REMARK] SQ
== END | disposition home or self-care (01) ==
LOC: RAD 10:09
PROVIDERS: ATTEND Internal Medicine Infectious Disease
DX: J91.8 Pleural effusion in other conditions classified elsewhere (principal)
CPT/HCPCS: 71046